=== PATIENT | female | born 2005 | race Two or more races ===

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

== ENCOUNTER 2025-09-01 18:05 | Emergency (ER) | payer OTHER, SELFPAY ==
[2025-09-01] VITALS (9 sets, daily range): BP systolic 111–121; BP diastolic 66–83; PULSE 95–105; RESP 18; TEMP 37.5–38; O2SAT 99
[2025-09-01 19:20] LABS: PCR FLU A Negative PCR FLU A (Negative); PCR FLU B Negative PCR FLU B (Negative); PCR RSV Negative PCR RSV (Negative); SARS PCR* Negative SARS-CoV-2 (Negative)
--- NOTE | 2025-09-01 20:19 | CRLHL7_ITS ---
For Patients: As a result of the Cures Act, medical imaging exams and procedure reports are released immediately into your electronic medical record. You may view this report before your referring provider. If you have questions, please contact your health care provider. Indication: Chest pain Technique: Two views of the chest Comparison: None Findings/Impression: Right costophrenic sulcus is excluded from field of view. Allowing for this, there is mild bibasilar haziness likely representing mild atelectasis though a small or developing atypical consolidation/infection may appear similarly. No other acute cardiopulmonary process detected. Dictated by Teo Esqueda MD @ 09/01/2025 9:09:08 PM (Electronically Signed)
--- NOTE | 2025-09-01 20:29 | ED_ITS ---
HPI - General Adult General Date Seen: 09/01/25 Chief complaint: Fever Stated complaint: fever Time Seen by Provider: 09/01/25 20:09 Source: patient Mode of arrival: ambulatory Limitations: no limitations History of Present Illness HPI narrative: Patient is a 19-year-old female presenting to the emergency department for fever, chest pain. Patient states she started having a fever yesterday afternoon. Fever has been persistent today. She also started developing a pending this has not been getting any better. She states she has no history of headaches similar to this. She has been taking [id number] medication without improvement in her symptoms. Has not had any weakness or numbness. States she will feel dizzy when she gets up. She states the dizziness is hard to describe. Also states he has began having chest pain that also started yesterday. States that midsternal chest and feels like a dull ache. States she has been having some intermittent chest pain for the past month but has not been this bad. Has no history of heart disease or lung disease. has no pertinent medical issues. Denies history of blood clots, no left lower extremity swelling, cancer, recent travel, hemoptysis. Is not on any hormone treatment. Also states she feels short of breath. Related Data Home Medications ?Medication ?Instructions ?Recorded ?Confirmed No Known Home Medications 09/01/2508/14 Allergies Allergy/AdvReac Type Severity Reaction Status Date / Time No Known Drug Allergies Allergy Verified 09/01/25 21:28 Review of Systems Status of ROS: Reports: 10 or more systems reviewed and unremarkable except as noted in History and below PFSH PFS Social History Smoking Status: Never smoker Second hand tobacco smoke exposure: No How often do you have a drink containing alcohol: never AUDIT-C Alcohol total score: 0 Non-prescribed substance use: denies use Exam Narrative: Exam Narrative: Const: Well-nourished, Well-developed, in mild distress Eyes: PERRL, no conjunctival injection, and symmetrical lids HENT: Atraumatic external nose and ears. Moist mucous membranes. Neck: Symmetric, trachea midline, No thyromegaly. CVS: RRR, No murmurs or gallops. Peripheral pulses 2+ and equal in all extremities RESP: Unlabored respiratory effort. Clear to auscultation bilaterally. GI: Nontender/Nondistended, No rebound or guarding. MSK:Extremities w/o deformity, Normal Active ROM Skin: Warm, Dry. No rashes or lesions. Neuro: Normal Muscle tone, No focal neurological deficits. Psych: Awake, Alert, & Oriented x3. Appropriate mood and affect. Const: Vital Signs, click to edit/add: Vital Signs - 24 hr 09/01/25 18:20 09/01/25 20:20 09/01/25 20:38 Temperature 100.4 F H 99.5 F 100.4 F H Pulse Rate [Pulse Oximeter] 105 H 99 Respiratory Rate 18 18 Blood Pressure [Ri ght Upper Arm] 118/83 121/78 Pulse Oximetry 99 99 Oxygen Delivery Me thod Room Air Room Air 09/01/25 20:42 09/01/25 21:00 Temperature 100.4 F H 100.4 F H Pulse Rate [Pulse Oximeter] Respiratory Rate 18 Blood Pressure [Ri ght Upper Arm] Pulse Oximetry 99 Oxygen Delivery Me thod Room Air Course Vital Signs Vital signs: Initial Vital Signs Temperature 100.4 F H 09/01/25 18:20 Temperature Source Temporal Artery Scan 09/01/25 18:20 Pulse Rate 105 H 09/01/25 18:20 Respiratory Rate 18 09/01/25 18:20 Blood Pressure 118/83 09/01/25 18:20 Blood Pressure Mean 94 09/01/25 18:20 Blood Pressure Position Sitting 09/01/25 18:20 Pulse Oximetry 99 09/01/25 18:20 Oxygen Delivery Method Room Air 09/01/25 18:20 Vital Signs Temperature 100.4 F H 09/01/25 18:20 Pulse Rate 105 H 09/01/25 18:20 Respiratory Rate 18 09/01/25 18:20 Blood Pressure 118/83 09/01/25 18:20 Pulse Oximetry 99 09/01/25 18:20 Oxygen Delivery Method Room Air 09/01/25 18:20 Temperature 100.4 F H 09/01/25 21:00 Pulse Rate 99 09/01/25 20:20 Respiratory Rate 18 09/01/25 21:00 Blood Pressure 121/78 09/01/25 20:20 Pulse Oximetry 99 09/01/25 21:00 Oxygen Delivery Method Room Air 09/01/25 21:00 Medications Administered Medications: Discontinued Medications Generic Name Dose Route Start Last Admin Trade Name Phil PRN Reason Stop Dose Admin Acetaminophen 650 mg 09/01/25 20:20 09/01/25 20:42 Acetaminophen 325 Mg Tablet PO 09/01/25 20:21 650 mg ONCE ONE Administration Diphenhydramine HCl 25 mg 09/01/25 20:19 09/01/25 20:35 Diphenhydramine 50 Mg/Ml Inj IVP 09/01/25 20:20 25 mg ONCE ONE Administration Lactated Ringer's 1,000 mls @ 1,000 mls/hr 09/01/25 20:19 09/01/25 20:47 Lactated Ringers 1000 Ml IV 09/01/25 21:18 1,000 mls/hr .Q1H ONE Administration Ketorolac Tromethamine 15 mg 09/01/25 20:19 09/01/25 20:38 Ketorolac 15 Mg/Ml Inj IVP 09/01/25 20:20 15 mg ONCE ONE Administration Metoclopramide HCl 10 mg 09/01/25 20:19 09/01/25 20:36 Metoclopramide Hcl 5 Mg/Ml Inj IVP 09/01/25 20:20 10 mg ONCE ONE Administration Medical Decision Making MDM Narrative Medical decision making narrative: Patient is a 19-year-old female presenting to emergency department for headache and fever. Fever could be related to viral syndrome. Will check viral swabs. She is also having chest pain. The differential diagnosis of chest pain is broad and includes common etiologies such as musculoskeletal strain, GERD, pneumonia, etc. More serious etiologies considered include PE, coronary artery disease, pneumothorax, aortic dissection, aortic aneurysm. I have very low concern for a dissection or aortic aneurysm. PE can not be ruled out with PERC score due to her tachycardia so will order D-dimer. EKG and troponin order to look for cardiac abnormalities. Chest x-ray her to look for pneumonia and pneumothorax. She is having headache also. This seems most likely related to her fever. She overall looks well and I have low concern for meningitis. Do not believe head imaging is necessary. I have low concern for brain mass. Will order migraine cocktail though. Will also order CBC, BMP, magnesium. Patient's lab work showed no concerning abnormalities other than elevated D- dimer 1.15. Viral swab within normal limits. EKG showed sinus tachycardia but no other concerning abnormalities as interpreted by myself. Troponin within normal limits. Considering make the chest pain do not believe repeat troponin is necessary. Chest x-ray interpreted individually by myself and the radiologist showed mild by basilar haziness likely representing mild atelectasis although a small developing atypical consultation may appear similarly. Due to the elevated D-dimer though I will do a CTA of the chest to look for signs of PE. CTA interpreted by myself and the radiologist independently showed no acute concerning abnormalities. No signs pulmonary embolism. On my review vital signs are stable throughout time in in the emergency department. Oximetry stayed in the mid to high 90s. quality assurance monitor chassis showed no concerning arrhyt hmias. Heart rate has improved after the fluids. She states she is feeling much better after the migraine cocktail and feels safe for discharge. She has a viral infection that we do not test for. Diagnosis: Viral infection, headache Lab Data Labs: Lab Results 09/01/25 09/01/25 09/01/25 Range/Units 18:25 20:20 20:30 WBC 6.81 (4.50-11.00) K/uL RBC 4.73 (4.00-5.20) m/uL Hgb 14.3 (12.0-16.0) gm/dL Hct 42.9 (33.0-51.0) % MCV 91 (80-100) fL MCH 30 (26-34) pg MCHC 33 (32-36) gm/dL RDW Coeff of Lakisha 12.7 (11.5-15.5) % Plt Count 336 (140-440) K/uL Neut % (Auto) 66.5 (42.0-72.0) % Lymph % (Auto) 14.2 L (20-44) % Mineral % (Auto) 18.2 H (0.0-11.0) % Eos % (Auto) 0.6 (0.0-7.0) % Baso % (Auto) 0.4 (0.0-3.0) % Neut # (Auto) 4.52 (1.7-7.0) K/uL Lymph # (Auto) 1.00 (0.90-2.90) K/uL Mineral # (Auto) 1.20 H (0.00-0.90) K/UL Eos # (Auto) 0.04 (0.00-0.50) K/uL Baso # (Auto) 0.03 (0.00-0.30) K/uL Abs Immat Gran (auto) 0.01 (0.00-0.30) K/uL Imm/Tot Granulo (auto) 0.1 % D-Dimer Quant (PE/DVT) 1.15 H (0.00-0.50) ug/ml Sodium 133 L (135-149) mmol/L Potassium 4.1 (3.6-5.1) mmol/L Chloride 95 L (96-114) mmol/L Carbon Dioxide 24 (20-32) mmol/L Anion Gap 14 (7-15) mEq/L BUN 10 (5-24) mg/dL Creatinine 0.5 L (0.6-1.2) mg/dL Estimated GFR 138 ml/min Glucose 99 (60-115) mg/dL Calcium 9.1 (8.7-10.8) mg/dL Magnesium 2.0 (1.5-2.6) mg/dL SARS-CoV-2 (PCR) Negative SARS-CoV-2 (Negative) Influenza Type A (PCR) Negative PCR FLU A (Negative) Influenza Type B (PCR) Negative PCR FLU B (Negative) RSV (PCR) Negative PCR RSV (Negative) POC Troponin I (0.01-0.04) ng/ml 09/01/25 Range/Units 20:35 WBC (4.50-11.00) K/uL RBC (4.00-5.20) m/uL Hgb (12.0-16.0) gm/dL Hct (33.0-51.0) % MCV (80-100) fL MCH (26-34) pg MCHC (32-36) gm/dL RDW Coeff of Lakisha (11.5-15.5) % Plt Count (140-440) K/uL Neut % (Auto) (42.0-72.0) % Lymph % (Auto) (20-44) % Mineral % (Auto) (0.0-11.0) % Eos % (Auto) (0.0-7.0) % Baso % (Auto) (0.0-3.0) % Neut # (Auto) (1.7-7.0) K/uL Lymph # (Auto) (0.90-2.90) K/uL Mineral # (Auto) (0.00-0.90) K/UL Eos # (Auto) (0.00-0.50) K/uL Baso # (Auto) (0.00-0.30) K/uL Abs Immat Gran (auto) (0.00-0.30) K/uL Imm/Tot Granulo (auto) % D-Dimer Quant (PE/DVT) (0.00-0.50) ug/ml Sodium (135-149) mmol/L Potassium (3.6-5.1) mmol/L Chloride (96-114) mmol/L Carbon Dioxide (20-32) mmol/L Anion Gap (7-15) mEq/L BUN (5-24) mg/dL Creatinine (0.6-1.2) mg/dL Estimated GFR ml/min Glucose (60-115) mg/dL Calcium (8.7-10.8) mg/dL Magnesium (1.5-2.6) mg/dL SARS-CoV-2 (PCR) (Negative) Influenza Type A (PCR) (Negative) Influenza Type B (PCR) (Negative) RSV (PCR) (Negative) POC Troponin I 0.00 L (0.01-0.04) ng/ml Imaging Data Chest x-ray: Attestation: I have reviewed the pertinent imaging results. Radiologist's impression: Right costophrenic sulcus is excluded from field of view. Allowing for this, there is mild bibasilar haziness likely representing mild atelectasis though a small or developing atypical consolidation/infection may appear similarly. No other acute cardiopulmonary process detected. Dictated by Teo Esqueda MD @ 09/01/2025 9:09:08 PM CTA chest: Attestation: I have reviewed the pertinent imaging results. Radiologist's impression: No pulmonary embolism. No focal consolidations. Please note that all CT scans at this facility use dose modulation, iterative reconstruction, and/or weight-based dosing when appropriate to reduce radiation dose to as low as reasonably achievable. Dictated by Binu Lozano MD @ 09/01/2025 9:43:40 PM ECG Data Attestation: I personally reviewed and interpreted this ECG as follows: Prior ECG tracings: not available for review Interpretation: Sinus tachycardia with a rate of 101 beats per minute, normal intervals, normal axis, no ST or T-wave abnormalities Discharge Plan Discharge Clinical Impression: Viral infection Headache Qualifiers: Headache type: unspecified Headache chronicity pattern: acute headache Intractability: not intractable Qualified Code(s): R51.9 - Headache, unspecified Patient Disposition: Home, Self-Care Condition: Improved Instructions: Acute Headache (ED), Viral Syndrome (ED) Additional Instructions: Your symptoms are most likely from a viral infection that we cannot test for. Symptoms should improve on their own. For your headache I recommend continuing to take Tylenol and ibuprofen [id number] as needed for pain. If it does continue to persist I recommend scheduling the medication to stay ahead of the pain. Return to emergency department for new or worsening symptoms. Prescriptions: No Action No Known Home Medications Follow Up/Referrals: Yudith Monaco CNP [Primary Care Provider, Family Practice] Stand Alone Forms: [employer] Info Instructions
[2025-09-01] MEDS: METOCLOPRAMIDE HCL 5 MG/ML INJ 10 MG IVP (20:36)
[2025-09-01 20:42] LABS: Hematocrit* 42.9 % (33.0-51.0); Hemoglobin* 14.3 gm/dL (12.0-16.0); Immature Granulocytes Abs Auto 0.01 K/uL (0.00-0.30); Immature Granulocytes Pct Auto 0.1 %; Mean Corpuscular HGB Conc 33 gm/dL (32-36); Mean Corpuscular Hemoglobin 30 pg (26-34); Mean Corpuscular Volume 91 fL (80-100); RDW Coefficient of Variation % 12.7 % (11.5-15.5); Red Blood Count* 4.73 m/uL (4.00-5.20); White Blood Count* 6.81 K/uL (4.50-11.00)
[2025-09-01] MEDS: ACETAMINOPHEN 325 MG TABLET 650 MG PO (20:42)
[2025-09-01 20:46] LABS: Lymphocytes Absolute Auto 1.00 K/uL (0.90-2.90); Slide Review Reflex No
[2025-09-01] MEDS: LACTATED RINGERS 1000 ML 1,000 ML IV (20:47)
[2025-09-01 20:55] LABS: Chloride* 95 mmol/L (96-114); Potassium* 4.1 mmol/L (3.6-5.1); Sodium* 133 mmol/L (135-149)
[2025-09-01 20:58] LABS: Anion Gap 14 mEq/L (7-15); Blood Urea Nitrogen* 10 mg/dL (5-24); Calcium* 9.1 mg/dL (8.7-10.8); Carbon Dioxide* 24 mmol/L (20-32); Creatinine* 0.5 mg/dL (0.6-1.2); Estimated Glomerular Filt Rate 138 ml/min; Glucose* 99 mg/dL (60-115)
[2025-09-01 21:01] LABS: Troponin, Point-of-Care* 0.00 ng/ml (0.01-0.04)
[2025-09-01 21:06] LABS: D Dimer Quantitative* 1.15 ug/ml (0.00-0.50)
--- NOTE | 2025-09-01 21:17 | CRLHL7_ITS ---
For Patients: As a result of the Century Cures Act, medical imaging exams and procedure reports are released immediately into your electronic medical record. You may view this report before your referring provider. If you have questions, please contact your health care provider. INDICATION: Chest pain. TECHNIQUE: CT chest PE was acquired with 100 cc Omnipaque 350 IV contrast. MIP reconstructions were performed. COMPARISON: Chest radiograph, September 01, 2025. FINDINGS: Heart and vasculature: Contrast opacification of the pulmonary arterial tree is adequate. No sign of pulmonary embolism. Heart size is normal. Thoracic aorta and pulmonary artery are normal in caliber. Lungs and pleura: No suspicious nodules or infiltrates. No pleural effusions, pleural thickening, or pneumothorax. Lymph nodes/mediastinum: No mediastinal, hilar, or axillary adenopathy. Chest wall: No masses. Upper abdomen: No acute or significant findings. Bones: Unremarkable for age. IMPRESSION: No pulmonary embolism. No focal consolidations. Please note that all CT scans at this facility use dose modulation, iterative reconstruction, and/or weight-based dosing when appropriate to reduce radiation dose to as low as reasonably achievable. Dictated by Binu Lozano MD @ 09/01/2025 9:43:40 PM (Electronically Signed)
== END 2025-09-01 22:10 | disposition home or self-care (01) ==
PROVIDERS: Emergency Provider Student in an Organized Health Care Education/Training Program; PCP Nurse Practitioner
DX: B34.9 Viral infection, unspecified (principal); R51.9 Headache, unspecified
CPT/HCPCS: 36415; 71046; 71275; 80048; 83735; 84484; 85025; 85379; 87631; 93005; 94761; 96374; 96375; 99284; 99285; A9270; J1200; J1885; J2765; J7120; Q9967